=== PATIENT | female | born 1925 | race Caucasian/White ===

== ENCOUNTER 2016-10-04 03:11 | Inpatient (IN) | payer OTHER, MEDICARE ==
[~2016-10-04] VITALS: Ht 160 cm; Wt 73.0 kg
[2016-10-04] VITALS (954 sets, daily range): BP systolic 123–150; BP diastolic 42–76; PULSE 60–71; TEMP 98–98.5; O2SAT 73–100
[~2016-10-04 03:11] MED LIST: ASPI81TA PO; ASPIRIN E.C. 8181 MG PO; ATENOLOL; BETAPACE 120MG120 MG PO; BONIVA PO; BONIVA150 MG PO; CALTRATE-600 W600 MG PO; CARAFATE 1GM1 G PO; CEPHALEXIN500 M1 PO; CLARITIN 1010 MG/TAB PO; DOXYCYCLINE 10100 MG PO; FISH OIL 1000MG1 CAP PO; FORTICAL200 IU/ACT NS; HYZAAR 12.5 MG-1 TAB PO; LIPITOR80 MG PO; LISINOPRIL/HCTZ1 TA1 PO; LORTAB 2.5/5001 TAB PO; NEXIUM PO; NEXIUM40 MG PO; NORVASC 5MG5 MG/TAB PO; PRILOSEC 20MG20 MG PO; SOTALOL; TYLENOL PM EXTR1 TA1 PO; VITAMIN D1000 IU PO; ZANTAC 150MG T150 MG PO; ZANTAC150 MG PO
[2016-10-04 03:30] LABS: MEAN CELL VOLUME 100 fl (80.0-100.0); MEAN CORPUSCULAR HGB CONC 33 g/dl (33.0-37.0); MEAN PLATELET VOLUME 10.1 fl (7.4-10.4); PLATELET COUNT 148 K/mm3 (130-400); RED BLOOD COUNT 3.65 M/mm3 (4.10-5.30); REDCELL DISTRIBUTION WIDTH-CV 15.8 % (11.5-14.5); WHITE BLOOD COUNT 5.2 K/mm3 (4.8-10.8)
[2016-10-04 03:32] LABS: HEMATOCRIT 36.3 % (37.0-47.0); HEMOGLOBIN 11.8 g/dl (12.5-16.0); MEAN CORPUSCULAR HEMOGLOBIN 32 pg (27.0-31.0)
[2016-10-04 03:33] LABS: ADD PATHOLOGY DIFF REVIEW NO
[2016-10-04 03:36] LABS: PARTIAL THROMBOPLASTIN TIME 28.6 SECONDS (26.0-37.0)
[2016-10-04 03:39] LABS: ADJUSTED CALCIUM 9.7 mg/dL (8.4-10.2); ALANINE AMINOTRANSFERASE 33 U/L (9-52); ALBUMIN 3.4 gm/dL (3.5-5.0); ALKALINE PHOSPHATASE 83 U/L (50-136); ANION GAP 9 mmol/L (7-16); BILIRUBIN,TOTAL 0.7 mg/dL (0.0-1.0); BLOOD UREA NITROGEN 13 mg/dL (7-17); CALCIUM 9.2 mg/dL (8.4-10.2); CARBON DIOXIDE 25 mmol/L (22-30); CHLORIDE 99 mmol/L (98-107); CREATININE, serum 0.97 mg/dL (0.52-1.25); GLUCOSE 187 mg/dL (74-106); MAGNESIUM 1.9 mg/dL (1.6-2.3); PHOSPHOROUS 3.5 mg/dL (2.5-4.5); POTASSIUM 4.6 mmol/L (3.4-5.0); SODIUM 134 mmol/L (137-145); TOTAL PROTEIN 6.9 gm/dL (6.4-8.2)
[2016-10-04 03:41] LABS: INR 1.1 (0.8-3.0); PROTHROMBIN TIME 12.1 SECONDS (9.7-12.8)
[2016-10-04 03:49] LABS: BAND 16 % (0-10); EOSINOPHIL 3 % (0-4); NEUTROPHILS 25 % (42.0-75.2); TOTAL CELLS COUNTED 100
[2016-10-04 03:51] LABS: B-TYPE NATRIURETIC PEPTIDE 755 pg/mL (0-450)
[2016-10-04 03:55] LABS: TROPONIN-I < 0.012 ng/mL (0.000-0.034)
[2016-10-05] VITALS (662 sets, daily range): BP systolic 119–147; BP diastolic 68–76; PULSE 69–73; TEMP 97.2–97.6; O2SAT 87–100
[2016-10-05] MEDS ORDERED: ELIQUIS 5MG PO ×2 (08:25→09:34)
== END 2016-10-05 11:20 | disposition home or self-care (01) | DRG 310 ==
LOC: COL.ER 03:11 → IMCU 05:58
PROVIDERS: Emergency Medicine; Family Medicine
DX: I48.0 Paroxysmal atrial fibrillation (principal); I10 Essential (primary) hypertension; K21.9 Gastro-esophageal reflux disease without esophagitis; Z95.0 Presence of cardiac pacemaker; Z85.3 Personal history of malignant neoplasm of breast
CPT/HCPCS: 99223-AI; 99239; J1160; J2405; J7030; J7050

== ENCOUNTER → 2016-11-18 | Outpatient (CLI) | payer OTHER ==
[~2016-11-18] MED LIST changes: +ELIQUIS 5MG PO
== END ==
LOC: MC.RAD 11:40
DX: Z12.31 Encounter for screening mammogram for malignant neoplasm of breast (principal); D24.2 Benign neoplasm of left breast; D24.1 Benign neoplasm of right breast; Z85.3 Personal history of malignant neoplasm of breast; Z80.3 Family history of malignant neoplasm of breast